=== PATIENT | female | born 1940 | race Caucasian/White ===

== ENCOUNTER 2019-08-29 10:08 | Outpatient (CLI) | payer MEDICARE ==
--- NOTE | 2019-08-29 12:27 | MRI ---
MRI BRAIN WITH AND WITHOUT CONTRAST: Date: 08/29/2019 INDICATION: Senile degeneration. Hallucinations. Mental status change. Comparison made to prior MRI brain dated 11/02/2013. FINDINGS: Ventricles have normal size and position. There are mild to moderate chronic ischemic white matter ch anges which appear stable compared to the 2014 exam. No evidence of restricted diffusion. No abnormal enhancement. Intracranial internal carotid arteries, cerebral arteries, basilar artery, and dural venous sinuses e xhibit flow-voids. Paranasal sinuses appear clear. IMPRESSION: Mild cortical volume loss. Mild to moderate chronic ischemic white matter changes, which appear stabl e from prior exam. No acute finding or significant interval change. POS: [facility]
== END 2019-08-29 10:09 | disposition home or self-care (01) ==
LOC: SCSMRI 10:08
PROVIDERS: ATTEND Psychiatry & Neurology Neurology
DX: G31.1 Senile degeneration of brain, not elsewhere classified (principal); I67.82 Cerebral ischemia; G93.89 Other specified disorders of brain
CPT/HCPCS: 70553; 82565